=== PATIENT | male | born 1965 | race Caucasian/White ===

== ENCOUNTER 2016-12-17 12:44 | Emergency (ER) | payer BC ==
[~2016-12-17] VITALS: Ht 180.3 cm; Wt 167.3 kg
[~2016-12-17 12:44] MED LIST: BACTRIM,SEPT1 TABLE1 PO; CIPRO500 MG PO; LORTAB 5-325 M1 EACH PO; NAPROSYN500 MG PO
[2016-12-17 14:20] LABS: HEMATOCRIT 47.8 % (38.0-50.0); MCH 28.5 PG (29.0-34.0); MCHC 33.3 G/DL (30.0-36.0); MCV 85.7 FL (86-99); MEAN PLAT.VOLUME 9.6 uM^3 (9.0-12.4); PLATELET COUNT 250 K/uL (156-360); RBC DIS.WIDTH-SD 43.5 % (39-53); RED BLOOD COUNT 5.58 M/uL (4.00-5.50); WHITE BLOOD COUNT 9.8 K/uL (4.1-10.2)
[2016-12-17 14:23] LABS: CARBON DIOXIDE (BICARBONATE) 30.6 MEQ/L (20-31)
[2016-12-17 14:29] LABS: CHLORIDE 102 mEq/L (99-109); POTASSIUM 4.1 mEq/L (3.7-5.4); SODIUM 137 mEq/L (136-147)
[2016-12-17 14:31] LABS: GLUCOSE 339 mg/dL (70-99)
[2016-12-17 14:32] LABS: ANION GAP 10 MEQ/L (2-14)
[2016-12-17 14:35] LABS: GFR ESTIMATE (CALCULATED) > 59 mL/min/; UREA NITROGEN (BUN) 11 mg/dL (9-23)
[2016-12-17 14:38] LABS: ADD MIUA? NO; BILIRUBIN NEGATIVE; BLOOD NEGATIVE; COLOR YELLOW ((YELLOW)); GLUCOSE (STRIP) >=500; KETONES NEGATIVE; LEUKOCYTES NEGATIVE; NITRITE NEGATIVE; PROTEIN (STRIP) NEGATIVE; SPECIFIC GRAVITY 1.039 (1.000-1.030); UCUL ADDED? NO; UROBILINOGEN 0.2 MG/DL (0.2-1.0)
[2016-12-17 15:03] LABS: SAMPLE HEMOLYSIS CHECK 0; SAMPLE ICTERIC CHECK 0; SAMPLE LIPEMIA CHECK 0
[2016-12-17] MEDS ORDERED: METFORMIN HCL500 MG PO (15:52)
[2016-12-17 16:35] VITALS: BP 127/83
== END 2016-12-17 16:37 | disposition home or self-care (01) ==
LOC: EME 12:44
PROVIDERS: Emergency Medicine
DX: E11.9 Type 2 diabetes mellitus without complications (principal)
CPT/HCPCS: 80048; 81003; 82010; 82803; 85027; 99281; 99285; J7030

== ENCOUNTER 2017-03-20 04:23 | Emergency (ER) | payer BC ==
[~2017-03-20] VITALS: Ht 180.3 cm; Wt 168.6 kg
[~2017-03-20 04:23] MED LIST changes: +METFORMIN HCL500 MG PO
[2017-03-20 05:27] LABS: CHLORIDE 105 mEq/L (99-109); POTASSIUM 4.1 mEq/L (3.7-5.4); SODIUM 136 mEq/L (136-147)
[2017-03-20 05:29] LABS: GLUCOSE 188 mg/dL (70-99)
[2017-03-20 05:30] LABS: ANION GAP 6 MEQ/L (2-14)
[2017-03-20 05:31] LABS: TOTAL BILIRUBIN 0.9 mg/dL (0.0-1.0)
[2017-03-20 05:33] LABS: ALKALINE PHOSPHATASE 138 IU/L (3-129); GFR ESTIMATE (CALCULATED) > 59 mL/min/
[2017-03-20 05:34] LABS: HEMATOCRIT 43.8 % (38.0-50.0); MCH 28.8 PG (29.0-34.0); MCHC 32.9 G/DL (30.0-36.0); MCV 87.6 FL (86-99); MEAN PLAT.VOLUME 9.4 uM^3 (9.0-12.4); PLATELET COUNT 260 K/uL (156-360); RBC DIS.WIDTH-CV 14.2 % (11.8-14.6); RBC DIS.WIDTH-SD 45.8 % (39-53); UREA NITROGEN (BUN) 12 mg/dL (9-23); WHITE BLOOD COUNT 8.3 K/uL (4.1-10.2)
[2017-03-20 05:36] LABS: LIPASE 15 U/L (1.0-51.0)
[2017-03-20] MEDS ORDERED: PERCOCET 5/31 TABLET PO (06:31)
[2017-03-20] MEDS ORDERED: ZOFRAN ODT4 MG PO (06:31)
[2017-03-20 06:55] LABS: ADD MIUA? YES; BILIRUBIN NEGATIVE; BLOOD NEGATIVE; COLOR YELLOW ((YELLOW)); GLUCOSE (STRIP) NEGATIVE; KETONES NEGATIVE; LEUKOCYTES TRACE; NITRITE NEGATIVE; PROTEIN (STRIP) NEGATIVE; SPECIFIC GRAVITY 1.025 (1.000-1.030); UROBILINOGEN 0.2 MG/DL (0.2-1.0)
[2017-03-20 07:08] LABS: BACTERIA RARE /HPF; EPITHELIAL CELLS RARE /HPF; HYALINE CASTS 0-5 /LPF; MUCUS 1+ /LPF; RED BLOOD CELLS 0-5 /HPF (0-5); UCUL ADDED? YES
[2017-03-20 07:21] LABS: TROP-I INTERPRETATION NEGATIVE; TROPONIN-I 0.03 ng/mL (0.0-0.30)
[2017-03-20 07:37] VITALS: BP 135/78
== END 2017-03-20 07:38 | disposition home or self-care (01) ==
LOC: EME 04:23
PROVIDERS: Physician Assistant Medical
DX: K80.20 Calculus of gallbladder without cholecystitis without obstruction (principal); I10 Essential (primary) hypertension; E11.9 Type 2 diabetes mellitus without complications
CPT/HCPCS: 76705; 80053; 81003; 83690; 84484; 85027; 87077; 87086; 87186; 93005; 99281; 99283